=== PATIENT | male | born 1960 | race Caucasian/White ===

== ENCOUNTER 2024-07-13 09:18 | Outpatient (CLI) | payer MEDICARE, OTHER, SELFPAY ==
--- NOTE | ~2024-07-13 | US_ITS ---
EXAMINATION: US aorta [facility] DATE: 07/13/2024 09:51 INDICATION: Abdominal aortic aneurysm screening with familial history of cardiovascular disease TECHNIQUE: Grayscale, color Doppler, and pulsed Doppler images of the aorta and common iliac arteries were obtained. COMPARISON: None. FINDINGS: The proximal aorta measures 2.8 cm AP diameter. The mid aorta measures 2.0 cm. The distal aorta measu res 2.0 cm. The right common iliac artery measures 0.9 cm. The left common iliac artery measures 0.9 cm. IMPRESSION: 1. Normal caliber abdominal aorta Reviewed, dictated and finalized at location A.
== END 2024-07-13 09:19 | disposition home or self-care (01) ==
PROVIDERS: PCP Internal Medicine; Visit Provider Internal Medicine
DX: Z13.6 Encounter for screening for cardiovascular disorders (principal); Z82.49 Family history of ischemic heart disease and other diseases of the circulatory system
CPT/HCPCS: 76706